=== PATIENT | male | born 1985 | race Asian ===

== ENCOUNTER 2019-10-09 16:21 | Emergency (ER) | payer MEDICAID ==
[~2019-10-09] VITALS: Ht 182.9 cm; Wt 85.3 kg
[2019-10-09 16:28] VITALS: Ht 182.9 cm; Wt 85.3 kg
[2019-10-09 17:53] LABS: BASOPHIL % 0.1 % (0-2); PLATELET COUNT 246 x10^3mcL (130-400); RED CELL DISTRIBUTION WIDTH 12.6 % (11.5-14.5)
[2019-10-09 18:05] LABS: CHLORIDE SERUM 102 mmol/L (98-107); CREATININE SERUM 1.2 mg/dL (0.7-1.3); GFR1 > 60 mL/min; POTASSIUM SERUM 4.2 mmol/L (3.5-5.1)
[2019-10-09 18:10] LABS: ALBUMIN 4.9 g/dL (3.4-5.0); ALKALINE PHOSPHATASE 78 U/L (46-116); ALT/SGPT 27 U/L (16-63); AMYLASE 43 U/L (25-115); AST/SGOT 19 U/L (15-37); LIPASE 79 IU/L (73-393)
[2019-10-09 18:13] LABS: CALCIUM 9.3 mg/dL (8.5-10.1); CARBON DIOXIDE 27.7 mmol/L (21-32); GLUCOSE SERUM 107 mg/dL (74-106); SODIUM SERUM 139 mmol/L (136-145)
[2019-10-09 18:26] VITALS: BP 134/74
== END 2019-10-09 18:26 | disposition home or self-care (01) ==
LOC: ED 16:21
PROVIDERS: Emergency Medicine
DX: R10.31 Right lower quadrant pain (principal); R11.0 Nausea
CPT/HCPCS: J1885